=== PATIENT | female | born 1995 | race Caucasian/White ===

== ENCOUNTER 2019-07-18 17:52 | Emergency (ER) | payer OTHER ==
[~2019-07-18] VITALS: Ht 160 cm; Wt 49.9 kg
[2019-07-18] MEDS ORDERED: MALARONE 250-11 EACH PO (18:04)
[2019-07-18] MEDS ORDERED: MELOXICAM7.5 MG PO (18:47)
[2019-07-18 19:26] VITALS: BP 130/89
== END 2019-07-18 19:26 | disposition home or self-care (01) ==
LOC: M.ERS 17:52
DX: S92.251A Displaced fracture of navicular [scaphoid] of right foot, initial encounter for closed fracture (principal); X50.9XXA Other and unspecified overexertion or strenuous movements or postures, initial encounter; Y93.89 Activity, other specified; Y92.89 Other specified places as the place of occurrence of the external cause; Y99.8 Other external cause status